=== PATIENT | female | born 1990 | race Two or more races ===

== ENCOUNTER 2017-07-08 18:09 | Emergency (ER) | payer OTHER ==
[~2017-07-08] VITALS: Ht 165.1 cm; Wt 68.9 kg
--- NOTE | ~2017-07-08 | CR181 ---
[facility] A Service of [facility] & [facility] RADIOLOGY TEXT RESULTS PATIENT: MADISON LERMA LOCATION: [facility] : [birth year] UNIT #: [id number] AGE: [address]: Astrid Vizcarra APRN SEX: F ORDER DR: [id number] [facility] [address] [place], [place] [address] [id number] MR#: [id number] Acc #: [id number] NAME: MADISON LERMA : 1990 SEX: F STUDY DATE/TIME: 07/08/2017 21:30 UNIT: [facility] ROOM: STUDY DESCRIPTION: CR Lumbar Spine 2 or 3 Views Attending Physician: Astrid Vizcarra A.P.R.N. Ordering Physician: Astrid Vizcarra A.P.R.N. 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 FINDINGS AP and lateral projections of the lumbar segment show good mineralization of both anterior and posterior elements. They are all anatomically normal without indication of fracture, dislocation, or malignant change of a sclerotic or lytic type. There is no congenital defect noted. The sacroiliac joints are normal. IMPRESSION Normal lumbar spine. Dictated by... Yolis March M.D. THIS IS AN ELECTRONICALLY VERIFIED REPORT Yolis March M.D. at 07/09/2017 2:22 PM Howard TD: 07/09/2017 00:58 JOB #: [id number] MEDICAL IMAGING REPORT Page 1 of 1 COPY
[~2017-07-08 18:09] MED LIST: AMOXICILLIN875 MG PO; ANAPROX DS550 M1 PO; BCP; CENTRUM; PROMETHAZINE-D240 ML PO; VOLTAREN75 MG PO; ZYRTEC10 M3
== END 2017-07-08 22:34 | disposition home or self-care (01) ==
LOC: CED 18:09 → CFTX 18:09
DX: S39.012A Strain of muscle, fascia and tendon of lower back, initial encounter (principal); Z88.1 Allergy status to other antibiotic agents; X50.0XXA Overexertion from strenuous movement or load, initial encounter
CPT/HCPCS: 72100; 84703; 96372; 99283; J1885